=== PATIENT | female | born 1940 ===

== ENCOUNTER 2017-08-15 16:43 | Emergency (ER) | payer SELFPAY ==
[2017-08-15] MEDS ORDERED: CATAPRES PO ONE (17:28)
--- NOTE | 2017-08-15 17:46 | Emergency Department Report ---
HPI - General Chief Complaint: High BP Time Seen by Provider: 08/15/17 17:28 - HPI HPI: Room 4 The patient is a 79-year-old female presenting with chief complaint of hypertension. Patient states she was at a routine doctor's appointment when she was found to be hypertensive. Patient was instructed to come to the emergency department for management. Patient remains asymptomatic denying any pain whatsoever. When asked how she is feeling the patient replies "Alejandro." Location: Cardiovascular system Duration: [See above] Quality: Hypertensive Severity: Moderate Modifying factors: [see above] Context: [see above] Mode of transportation: [not driving] ED Past Medical Hx - Past Medical History Hx Hypertension: Yes Hx CVA: Yes (residual left-sided weakness) - Surgical History Additional Surgical History: Hysterectomy, myomectomy - Family History Family history: no significant - Social History Smoking Status: Never Smoker Substance Use Type: None - Medications Home Medications: Home Medications Medication Instructions Recorded Confirmed Last Taken Type amLODIPine [Norvasc] 5 mg PO DAILY #30 tab 08/15/17 Unknown Rx ED Review of Systems ROS: Stated complaint: HYPERTENSIVE Other details as noted in HPI Constitutional: no symptoms reported Eyes: denies: eye pain ENT: denies: throat pain Cardiovascular: denies: chest pain Gastrointestinal: denies: abdominal pain Genitourinary: denies: dysuria Neurological: denies: headache Physical Exam - Physical Exam Vital Signs: Vital Signs 08/15/17 17:00 Temperature 98 F Pulse Rate 76 Blood Pressure 231/81 O2 Sat by Pulse 99 Oximetry Physical Exam: GENERAL: The patient is well-developed well-nourished female lying on stretcher not appearing to be in acute distress. [] HEENT: Normocephalic. Atraumatic. Extraocular motions are intact. Patient has moist mucous membranes. NECK: Supple. No meningitic signs are noted. Trachea midline CHEST/LUNGS: Clear to auscultation. There is no respiratory distress noted. HEART/CARDIOVASCULAR: Regular. There is no tachycardia. There is no gallop rub or murmur. ABDOMEN: Abdomen is soft, nontender. Patient has normal bowel sounds. There is no abdominal distention. SKIN: There is no rash. There is no edema. There is no diaphoresis. NEURO: The patient is awake, alert, and oriented. The patient is cooperative. Cranial nerves II through XII grossly intact. Slight residual left-sided weakness from previous CVA. The patient has normal speech MUSCULOSKELETAL: There is no evidence of acute injury. ED Course Vital Signs 08/15/17 17:00 Temperature 98 F Pulse Rate 76 Blood Pressure 231/81 O2 Sat by Pulse 99 Oximetry - Reevaluation(s) Reevaluation #1: 08/15/17 21:30 Blood pressure decreased to 160 systolic. Patient remains asymptomatic ED Medical Decision Making - Differential Diagnosis hypertension Critical care attestation.: If time is entered above; I have spent that time in minutes in the direct care of this critically ill patient, excluding procedure time. ED Disposition Clinical Impression: Uncontrolled hypertension Disposition: DC-01 TO HOME OR SELFCARE Is pt being admited?: No Does the pt Need Aspirin: No Condition: Stable Instructions: Hypertension (ED) Additional Instructions: Return to the emergency department immediately should you develop worsening symptoms, fever, inability to tolerate food or liquid or any other concerns. Prescriptions: amLODIPine [Norvasc] 5 mg PO DAILY #30 tab Referrals: your, primary doctor [Other] - ETTA (Please follow up with her primary physician as soon as possible for further management/adjustment of your blood pressure medications) Time of Disposition: 21:31
[2017-08-15] MEDS ORDERED: APRESOLINE IV ONE (20:39)
[2017-08-15 21:56] VITALS: BP 132/37
== END 2017-08-15 21:59 | disposition home or self-care (01) ==
LOC: ED 16:43
DX: I10 Essential (primary) hypertension (principal); Z86.73 Personal history of transient ischemic attack (TIA), and cerebral infarction without residual deficits; Z90.710 Acquired absence of both cervix and uterus
CPT/HCPCS: 96374; 99283; J0360